=== PATIENT | female | born 1975 | race Caucasian/White ===

== ENCOUNTER 2017-05-27 08:40 | Emergency (ER) | payer OTHER ==
[~2017-05-27] VITALS: Ht 149.9 cm; Wt 69.4 kg
[2017-05-27] MEDS ORDERED: LEVE500 PO (09:33)
[2017-05-27] MEDS ORDERED: IBUP600 PO (11:07)
== END 2017-05-27 11:18 | disposition home or self-care (01) ==
LOC: ER 08:40
DX: R07.81 Pleurodynia (principal); M54.6 Pain in thoracic spine; F17.210 Nicotine dependence, cigarettes, uncomplicated; Y04.8XXA Assault by other bodily force, initial encounter; Z88.0 Allergy status to penicillin; Z79.899 Other long term (current) drug therapy
CPT/HCPCS: 71101; 99283

== ENCOUNTER 2017-10-26 08:38 | Emergency (ER) | payer OTHER ==
[~2017-10-26] VITALS: Ht 149.9 cm; Wt 69.0 kg
[~2017-10-26 08:38] MED LIST: IBUP600 PO; LEVE500 PO
[2017-10-26] MEDS ORDERED: Keppra1000 MG PO (09:10)
== END 2017-10-26 09:20 | disposition home or self-care (01) ==
LOC: ER 08:38
DX: Z76.0 Encounter for issue of repeat prescription (principal); G40.909 Epilepsy, unspecified, not intractable, without status epilepticus; Z79.899 Other long term (current) drug therapy; Z88.0 Allergy status to penicillin; Z87.891 Personal history of nicotine dependence
CPT/HCPCS: 99283

== ENCOUNTER 2018-06-13 09:02 | Emergency (ER) | payer OTHER ==
[~2018-06-13] VITALS: Ht 149.9 cm; Wt 68.0 kg
[~2018-06-13 09:02] MED LIST changes: +Keppra1000 MG PO
[2018-06-13] MEDS ORDERED: Keppra1000 MG PO (10:29)
[2018-06-13 10:31] LABS: BASOPHILS ABSOLUTE AUTO 0.02 K/mm3 (0.00-0.23); BASOPHILS PERCENT AUTO 1 % (0-2); EOSINOPHILS ABSOLUTE AUTO 0.07 K/mm3 (0.00-0.68); EOSINOPHILS PERCENT AUTO 2 % (0-6); Hematocrit 34.3 % (33.0-51.0); Hemoglobin 10.3 g/dL (11.5-16.0); IMMATURE GRAN ABSOLUTE AUTO 0.01 K/mm3 (0.00-0.10); IMMATURE GRAN PERCENT AUTO 0 % (0-1); LYMPHOCYTES ABSOLUTE AUTO 1.41 K/mm3 (0.84-5.20); LYMPHOCYTES PERCENT AUTO 32 % (21-46); MONOCYTES ABSOLUTE AUTO 0.37 K/mm3 (0.16-1.47); MONOCYTES PERCENT AUTO 8 % (4-13); Mean Corpuscular Volume 80 fL (80-100); Mean Platelet Volume 10.5 fL (9.1-12.4); NEUTROPHILS ABSOLUTE AUTO 2.52 K/mm3 (1.96-9.15); NEUTROPHILS PERCENT AUTO 57 % (41-73); Platelet Count 187 K/mm3 (150-400); RDW Coefficient Variation 15.4 % (11.7-14.2); RDW Standard Deviation 44.8 fL (35.1-46.3)
[2018-06-13 11:04] LABS: Alanine Aminotransfer (ALT/SGP 27 U/L (12-78); Albumin/Globulin Ratio 1.2 (0.8-1.8); Alk Phos 72 U/L (50-136); Anion Gap 5 mmol/L (6-16); Aspartate Aminotrans (AST/SGOT 17 U/L (12-37); Bilirubin, Total 0.4 mg/dL (0.1-1.0); Blood Urea Nitrogen 9 mg/dL (8-24); Bun/Creatinine Ratio 11.5 (12.0-20.0); CO2, Blood 26 mmol/L (21-32); Calcium, Blood 8.7 mg/dL (8.5-10.1); Chloride, Blood 106 mmol/L (98-108); Creatinine, Blood 0.79 mg/dL (0.40-1.00); Globulin, Blood 3.2 g/dL (2.2-4.0); Glomerular Filtration Rate >60 (60-); Glucose, Blood 93 mg/dL (70-99); Potassium, Blood 3.8 mmol/L (3.5-5.5); Sodium, Blood 137 mmol/L (136-145); Total Protein, Blood 7.2 g/dL (6.4-8.2)
== END 2018-06-13 11:09 | disposition home or self-care (01) ==
LOC: ER 09:02
PROVIDERS: Physician Assistant
DX: M54.6 Pain in thoracic spine (principal); Z88.0 Allergy status to penicillin; Z79.899 Other long term (current) drug therapy; F17.200 Nicotine dependence, unspecified, uncomplicated
CPT/HCPCS: 36415; 80053; 84703; 85025; 85379; 99283

== ENCOUNTER 2018-12-14 02:26 | Emergency (ER) | payer OTHER ==
[~2018-12-14] VITALS: Ht 149.9 cm; Wt 74.4 kg
[2018-12-14] MEDS ORDERED: IRON 325 MG (03:21)
[2018-12-14] MEDS ORDERED: TRAZ50 PO (03:21)
[2018-12-14] MEDS ORDERED: Zoloft100 MG PO (03:22)
[2018-12-14] MEDS ORDERED: CYCL10 PO (05:43)
[2018-12-14] MEDS ORDERED: IBUP600 PO (05:43)
== END 2018-12-14 05:54 | disposition home or self-care (01) ==
LOC: ER 02:26
DX: S16.1XXA Strain of muscle, fascia and tendon at neck level, initial encounter (principal); Z88.0 Allergy status to penicillin; Z79.899 Other long term (current) drug therapy; F17.200 Nicotine dependence, unspecified, uncomplicated; V49.9XXA Car occupant (driver) (passenger) injured in unspecified traffic accident, initial encounter
CPT/HCPCS: 70450; 72125; 96372; 99284-25; J1885

== ENCOUNTER 2022-11-02 09:26 | Emergency (ER) | payer OTHER ==
[~2022-11-02] VITALS: Ht 149.9 cm; Wt 84.4 kg
[~2022-11-02 09:26] MED LIST changes: +CYCL10 PO; +IRON 325 MG; +TRAZ50 PO; +Zoloft100 MG PO
[2022-11-02 10:09] VITALS: BP 157/85
[2022-11-02] MEDS ORDERED: LEVE500 PO (10:16)
[2022-11-02] MEDS ORDERED: LEVETIRACETAM PO (10:33)
== END 2022-11-02 10:35 | disposition home or self-care (01) ==
LOC: ER 09:26
DX: Z76.0 Encounter for issue of repeat prescription (principal); G40.909 Epilepsy, unspecified, not intractable, without status epilepticus; F17.200 Nicotine dependence, unspecified, uncomplicated; Z88.0 Allergy status to penicillin; Z79.899 Other long term (current) drug therapy
CPT/HCPCS: 99281

== ENCOUNTER 2022-12-06 06:58 | Emergency (ER) | payer OTHER ==
[~2022-12-06] VITALS: Ht 149.9 cm; Wt 83.5 kg
[~2022-12-06 06:58] MED LIST changes: +LEVETIRACETAM PO
[2022-12-06 07:59] VITALS: BP 134/119
[2022-12-06] MEDS ORDERED: KEPPRA XR750 MG PO (08:12)
== END 2022-12-06 08:18 | disposition home or self-care (01) ==
LOC: ER 06:58
DX: Z76.0 Encounter for issue of repeat prescription (principal); G40.909 Epilepsy, unspecified, not intractable, without status epilepticus; F32.A Depression, unspecified; F41.9 Anxiety disorder, unspecified; F17.200 Nicotine dependence, unspecified, uncomplicated; Z88.0 Allergy status to penicillin; Z79.899 Other long term (current) drug therapy
CPT/HCPCS: 99281

== ENCOUNTER 2023-01-18 10:44 | Emergency (ER) | payer OTHER ==
[~2023-01-18] VITALS: Ht 149.9 cm; Wt 81.7 kg
[~2023-01-18 10:44] MED LIST changes: +KEPPRA XR750 MG PO
[2023-01-18 12:15] VITALS: BP 136/89
== END 2023-01-18 12:28 | disposition home or self-care (01) ==
LOC: ER 10:44
DX: S31.113A Laceration without foreign body of abdominal wall, right lower quadrant without penetration into peritoneal cavity, initial encounter (principal); W26.0XXA Contact with knife, initial encounter; Y93.89 Activity, other specified; Y92.89 Other specified places as the place of occurrence of the external cause; Y99.0 Civilian activity done for income or pay; Z23 Encounter for immunization; Z79.899 Other long term (current) drug therapy; G40.909 Epilepsy, unspecified, not intractable, without status epilepticus; F17.210 Nicotine dependence, cigarettes, uncomplicated
CPT/HCPCS: 90471; 90714; 90715; 99282-25

== ENCOUNTER 2023-02-06 14:09 | Emergency (ER) | payer OTHER ==
[~2023-02-06] VITALS: Ht 149.9 cm; Wt 73.0 kg
[2023-02-06 14:11] VITALS: BP 137/73
[2023-02-06] MEDS ORDERED: Norco 5-325 Ta1 EACH PO ×2 (15:13→16:15)
== END 2023-02-06 15:27 | disposition home or self-care (01) ==
LOC: ER 14:09
DX: S60.221A Contusion of right hand, initial encounter (principal); W22.8XXA Striking against or struck by other objects, initial encounter; Z79.899 Other long term (current) drug therapy; G40.909 Epilepsy, unspecified, not intractable, without status epilepticus; F43.10 Post-traumatic stress disorder, unspecified; F17.200 Nicotine dependence, unspecified, uncomplicated
CPT/HCPCS: 29125; 73130; 99283-25; A9270

== ENCOUNTER 2023-03-01 18:12 | Emergency (ER) | payer OTHER ==
[~2023-03-01] VITALS: Ht 149.9 cm; Wt 74.8 kg
[~2023-03-01 18:12] MED LIST changes: +Norco 5-325 Ta1 EACH PO
[2023-03-01] MEDS ORDERED: TRAZ50 PO (18:25)
[2023-03-01] MEDS ORDERED: MULVITA PO (18:25)
[2023-03-01] MEDS ORDERED: NAPR500 PO (20:26)
[2023-03-01] MEDS ORDERED: TRAM50 PO (20:26)
[2023-03-01 20:45] VITALS: BP 94/65
== END 2023-03-01 21:05 | disposition home or self-care (01) ==
LOC: ER 18:12
DX: S86.811A Strain of other muscle(s) and tendon(s) at lower leg level, right leg, initial encounter (principal); G40.909 Epilepsy, unspecified, not intractable, without status epilepticus; F17.200 Nicotine dependence, unspecified, uncomplicated; W18.09XA Striking against other object with subsequent fall, initial encounter; Y92.511 Restaurant or cafe as the place of occurrence of the external cause; Z79.899 Other long term (current) drug therapy
CPT/HCPCS: 73560-RT; 96374; 96375; 99284-25; J1885; J2270

== ENCOUNTER 2023-07-03 09:49 | Day surgery (SDC) | payer OTHER ==
[~2023-07-03] VITALS: Ht 149.9 cm; Wt 85.9 kg
[~2023-07-03 09:49] MED LIST changes: +Lactated Ringer's 1,000 ML IV ONE; +MULVITA PO; +NAPR500 PO; +TRAM50 PO
[2023-07-03] MEDS ORDERED: CeFAZolin Sodium 2,000 MG VIAL ONE (10:32)
[2023-07-03] MEDS ORDERED: NS 50 ML IV ONE (10:33)
[2023-07-03] MEDS ORDERED: FERSU300 PO (10:39)
[2023-07-03] MEDS ORDERED: Lactated Ringer's 1,000 ML IV ONE (11:08)
[2023-07-03] MEDS ORDERED: FentaNYL Citrate 50 MCG/ML 2 ML Injection ONE ×2 (11:11→13:27)
[2023-07-03] MEDS ORDERED: Midazolam HCl 1MG / ML 2ML Vial ONE (11:11)
[2023-07-03] MEDS ORDERED: propofoL 20 ML IV ONE (11:11)
[2023-07-03] MEDS ORDERED: EPINEPhrine HCl 1 MG/ML 1ML Amp ONE (12:05)
[2023-07-03] MEDS ORDERED: Ondansetron HCl 2 MG / ML 2ML Vial ONE ×2 (12:32→14:20)
[2023-07-03] MEDS ORDERED: Dexamethasone Sod Phos 10 MG/ML 1ML VIAL ONE (12:32)
[2023-07-03] MEDS ORDERED: HYDROmorphone HCl/Pf 1MG SYR ONE (12:47)
--- NOTE | 2023-07-03 12:53 | NUR ---
07/03/23 1253 Antoinette Santo 1ML OF EPI (1MG/ML) ADDED TO THE FIRST BAG OF IRRIGATION FLUID FOR IRRIGATION AT THE OPSITE BY DR KUMAR.
[2023-07-03] MEDS ORDERED: HYDROcodone 5-APAP 325 TAB ONE (14:07)
--- NOTE | 2023-07-03 14:26 | NUR ---
07/03/23 2720 Lesli Marin PT STATED SHE WAS NAUSEATED. GAVE 4 MG ZOFRAN AND IT EASED THE NAUSEA
[2023-07-03 14:37] VITALS: BP 149/89
== END 2023-07-03 14:46 | disposition home or self-care (01) ==
LOC: ORSCSDS 09:49
PROVIDERS: Orthopaedic Surgery
PROC: 0SBC4ZZ Excision of Right Knee Joint, Percutaneous Endoscopic Approach (ICD-10-PCS; principal; 2023-07-03 11:30)
DX: S83.241A Other tear of medial meniscus, current injury, right knee, initial encounter (principal); M17.11 Unilateral primary osteoarthritis, right knee; W01.0XXA Fall on same level from slipping, tripping and stumbling without subsequent striking against object, initial encounter; F17.210 Nicotine dependence, cigarettes, uncomplicated; G40.909 Epilepsy, unspecified, not intractable, without status epilepticus; F41.9 Anxiety disorder, unspecified; F32.A Depression, unspecified; Z79.899 Other long term (current) drug therapy; E66.9 Obesity, unspecified; Z68.38 Body mass index [BMI] 38.0-38.9, adult
CPT/HCPCS: A9270; J0171; J0690; J1100; J1170; J2250; J2405; J2704; J3010; J7120